=== PATIENT | male | born 1990 | race African-American/Black ===

== ENCOUNTER 2024-12-19 18:44 | Emergency (ER) | payer MEDICAID ==
[~2024-12-19] VITALS: Ht 182.9 cm; Wt 80.0 kg
[2024-12-19 18:46] VITALS: O2SAT 100
[2024-12-19] MEDS ORDERED: NICO-645 TP (19:12)
[2024-12-19] MEDS ORDERED: ACET-2708 MT (19:12)
[2024-12-19] MEDS: KETOROLAC 30MG/ML VIAL IM ONE (19:27)
[2024-12-19] MEDS: ACETAMINOPHEN 500MG TABLET PO ONE (19:28)
[2024-12-19 19:39] VITALS: BP 138/79; PULSE 75; RESP 16; TEMP 37.1; O2SAT 98
== END 2024-12-19 19:39 | disposition home or self-care (01) ==
LOC: ER 18:44
DX: R51.9 Headache, unspecified (principal); L02.32 Furuncle of buttock; F17.203 Nicotine dependence unspecified, with withdrawal
CPT/HCPCS: 99283; 96372; J1885